=== PATIENT | male | born 1965 | race Caucasian/White ===

== ENCOUNTER 2021-04-11 08:09 | Emergency (ER) | payer OTHER ==
[2021-04-11] MEDS ORDERED: PREDNISONE50 MG PO (10:43)
== END 2021-04-11 10:54 | disposition home or self-care (01) ==
LOC: ED 08:09
DX: T63.441A Toxic effect of venom of bees, accidental (unintentional), initial encounter (principal); T78.40XA Allergy, unspecified, initial encounter; Z91.030 Bee allergy status; Z88.8 Allergy status to other drugs, medicaments and biological substances; X58.XXXA Exposure to other specified factors, initial encounter; Y92.89 Other specified places as the place of occurrence of the external cause

== ENCOUNTER 2025-07-02 12:29 | Emergency (ER) | payer OTHER ==
[~2025-07-02 12:29] MED LIST: PREDNISONE50 MG PO
== END 2025-07-02 14:42 | disposition home or self-care (01) ==
LOC: ED 12:29
DX: T15.82XA Foreign body in other and multiple parts of external eye, left eye, initial encounter (principal); Z91.030 Bee allergy status; Z91.048 Other nonmedicinal substance allergy status; Z79.899 Other long term (current) drug therapy; W22.8XXA Striking against or struck by other objects, initial encounter; Y93.89 Activity, other specified; Y92.89 Other specified places as the place of occurrence of the external cause; Y99.8 Other external cause status